=== PATIENT | male | born 1975 | race American Indian/Alaskan Native ===

== ENCOUNTER 2017-05-19 13:42 | Emergency (ER) | payer BC ==
[2017-05-19] MEDS ORDERED: ASPIRIN PO ONE (14:09)
[2017-05-19 14:29] LABS: Basophils # (Auto) 0.1 K/mm3 (0.0-0.1); Basophils % (Auto) 0.9 % (0.0-1.8); Eosinophils # (Auto) 0.2 K/mm3 (0.0-0.4); Eosinophils % (Auto) 3.9 % (0.0-4.3); Hematocrit 41.2 % (35.5-45.6); Hemoglobin 13.4 gm/dl (11.8-15.2); Lymphocytes # (Auto) 2.5 K/mm3 (1.2-5.4); Lymphocytes % (Auto) 40.4 % (13.4-35.0); Mean Corpuscular HGB Conc 33 % (32-34); Mean Corpuscular Hemoglobin 28 pg (28-32); Mean Corpuscular Volume 86 fl (84-94); Monocytes # (Auto) 0.5 K/mm3 (0.0-0.8); Monocytes % (Auto) 7.9 % (0.0-7.3); Platelet Count 243 K/mm3 (140-440); Red Cell Distribution Width 14.2 % (13.2-15.2)
[2017-05-19 14:50] LABS: BUN/Creatinine Ratio 8; Blood Urea Nitrogen 11 mg/dL (9-20); Calcium 9.7 mg/dL (8.4-10.2); Hemolysis Index 5
[2017-05-20] MEDS ORDERED: TYLENOL PO ONE (01:22)
[2017-05-20] MEDS ORDERED: MOTRIN PO ONE (01:22)
--- NOTE | 2017-05-20 01:25 | Emergency Department Report ---
ED General Adult HPI - General Chief complaint: Chest Pain Stated complaint: C/P DIFF BREATHING Time Seen by Provider: 05/20/17 01:09 Source: patient, RN notes reviewed Mode of arrival: Ambulatory Limitations: No Limitations - History of Present Illness Initial comments: This is a 42-year-old male who was previously unknown to this provider. Does not have a primary care doctor, patient versus past medical history of hypertension and high cholesterol. Patient presents to the ER with complaints of chest pain and back pain. The chest pain is left-sided, and supramammary. It does not radiate to the back, arms or neck. He reports that around 24 hours ago, he then developed left lower breast pain. It also does not radiate to the back, arms or neck. There is no vomiting or diaphoresis. Patient describes shortness of breath, which he further elaborates as difficulty breathing when he bends over to tie his shoelaces. He indicates no trouble with walking up and down stairs. 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 He denies leg pain, leg swelling, hematemesis, bright red blood per rectum. His pain has no exacerbating or relieving factors. -: Gradual, week(s) Location: chest, back Severity scale (0 -10): 0 Quality: aching Consistency: intermittent Improves with: none Worsens with: none Associated Symptoms: chest pain. denies: confusion, cough, diaphoresis, fever/ chills, headaches, loss of appetite, malaise, nausea/vomiting, syncope, weakness - Related Data Previous Rx's Medication Instructions Recorded Last Taken Type Acetaminophen [Tylenol Arthritis] 650 mg PO Q6HR PRN #30 tablet.er 05/20/17 Unknown Rx Ibuprofen [Motrin] 600 mg PO Q8H PRN #30 tablet 05/20/17 Unknown Rx Allergies Allergy/AdvReac Type Severity Reaction Status Date / Time No Known Allergies Allergy Verified 05/20/17 01:10 ED Review of Systems ROS: Stated complaint: C/P DIFF BREATHING Other details as noted in HPI ED Past Medical Hx - Past Medical History Previous Medical History?: Yes Hx Hypertension: Yes Additional medical history: High Cholesterol - Surgical History Past Surgical History?: Yes Additional Surgical History: R thumb - Social History Smoking Status: Never Smoker Substance Use Type: Alcohol - Medications Home Medications: Home Medications Medication Instructions Recorded Confirmed Last Taken Type Acetaminophen [Tylenol Arthritis] 650 mg PO Q6HR PRN #30 tablet.er 05/20/17 Unknown Rx Ibuprofen [Motrin] 600 mg PO Q8H PRN #30 tablet 05/20/17 Unknown Rx ED Physical Exam - General Limitations: No Limitations General appearance: alert, in no apparent distress - Head Head exam: Present: atraumatic, normocephalic - Eye Eye exam: Present: normal appearance, EOMI. Absent: nystagmus - ENT ENT exam: Present: normal exam, normal orophraynx, mucous membranes moist, normal external ear exam - Neck Neck exam: Present: normal inspection, full ROM - Respiratory Respiratory exam: Present: normal lung sounds bilaterally. Absent: respiratory distress, chest wall tenderness - Cardiovascular Cardiovascular Exam: Present: regular rate, normal rhythm, normal heart sounds. Absent: bradycardia, tachycardia, irregular rhythm, systolic murmur, diastolic murmur, rubs, gallop - GI/Abdominal GI/Abdominal exam: Present: soft, normal bowel sounds. Absent: distended, tenderness, guarding, rebound, rigid, pulsatile mass - Rectal Rectal exam: Present: deferred - Extremities Exam Extremities exam: Present: normal inspection, full ROM, normal capillary refill , other (there is no palpable cord, there is a negative Homans sign.). Absent: tenderness, pedal edema, joint swelling, calf tenderness - Back Exam Back exam: Present: normal inspection, full ROM. Absent: tenderness, CVA tenderness (R), paraspinal tenderness, vertebral tenderness - Neurological Exam Neurological exam: Present: alert, oriented X3, CN II-XII intact, normal gait, other (Extraocular movements intact. Tongue midline. No facial droop. Facial sensation intact to light touch in the V1, V2, V3 distribution bilaterally. 5 and 5 strength in 4 extremities.. Sensation is intact to light touch in 4 extremities.). Absent: motor sensory deficit - Psychiatric Psychiatric exam: Present: normal affect, normal mood - Skin Skin exam: Present: warm, dry, intact, normal color. Absent: rash ED Course Vital Signs 05/19/17 05/19/17 05/20/17 14:01 23:38 00:08 Temperature 97.9 F 98.3 F 97.7 F Pulse Rate 65 59 L 60 Respiratory 18 18 Rate Blood Pressure 151/88 146/97 Blood Pressure 130/88 [Left] O2 Sat by Pulse 99 99 98 Oximetry 05/20/17 01:48 Temperature 98 F Pulse Rate 71 Respiratory 18 Rate Blood Pressure Blood Pressure 138/86 [Left] O2 Sat by Pulse 100 Oximetry ED Medical Decision Making - Lab Data Result diagrams: 05/19/17 14:16 05/19/17 14:16 Vital Signs 05/19/17 05/19/17 05/20/17 14:01 23:38 00:08 Temperature 97.9 F 98.3 F 97.7 F Pulse Rate 65 59 L 60 Respiratory 18 18 Rate Blood Pressure 151/88 146/97 Blood Pressure 130/88 [Left] O2 Sat by Pulse 99 99 98 Oximetry 05/20/17 01:48 Temperature 98 F Pulse Rate 71 Respiratory 18 Rate Blood Pressure Blood Pressure 138/86 [Left] O2 Sat by Pulse 100 Oximetry Lab Results 05/19/17 05/19/17 05/19/17 Range/Units 14:16 14:16 16:29 WBC 6.2 (4.5-11.0) K/mm3 RBC 4.80 (3.65-5.03) M/mm3 Hgb 13.4 (11.8-15.2) gm/dl Hct 41.2 (35.5-45.6) % MCV 86 (84-94) fl MCH 28 (28-32) pg MCHC 33 (32-34) % RDW 14.2 (13.2-15.2) % Plt Count 243 (140-440) K/mm3 Lymph % (Auto) 40.4 H (13.4-35.0) % [place] % (Auto) 7.9 H (0.0-7.3) % Eos % (Auto) 3.9 (0.0-4.3) % Baso % (Auto) 0.9 (0.0-1.8) % Lymph # 2.5 (1.2-5.4) K/mm3 [place] # 0.5 (0.0-0.8) K/mm3 Eos # 0.2 (0.0-0.4) K/mm3 Baso # 0.1 (0.0-0.1) K/mm3 Seg Neutrophils % 46.9 (40.0-70.0) % Seg Neutrophils # 2.9 (1.8-7.7) K/mm3 PT (12.2-14.9) Sec. INR (0.87-1.13) D-Dimer (0-234) ng/mlDDU Sodium 142 (137-145) mmol/L Potassium 4.0 (3.6-5.0) mmol/L Chloride 103.1 (98-107) mmol/L Carbon Dioxide 26 (22-30) mmol/L Anion Gap 17 mmol/L BUN 11 (9-20) mg/dL Creatinine 1.3 (0.8-1.5) mg/dL Estimated GFR > 60 ml/min BUN/Creatinine Ratio 8 % Glucose 100 (75-100) mg/dL Calcium 9.7 (8.4-10.2) mg/dL Troponin T < 0.010 < 0.010 (0.00-0.029) ng/mL 05/19/17 05/20/17 Range/Units 19:37 01:40 WBC (4.5-11.0) K/mm3 RBC (3.65-5.03) M/mm3 Hgb (11.8-15.2) gm/dl Hct (35.5-45.6) % MCV (84-94) fl MCH (28-32) pg MCHC (32-34) % RDW (13.2-15.2) % Plt Count (140-440) K/mm3 Lymph % (Auto) (13.4-35.0) % [place] % (Auto) (0.0-7.3) % Eos % (Auto) (0.0-4.3) % Baso % (Auto) (0.0-1.8) % Lymph # (1.2-5.4) K/mm3 [place] # (0.0-0.8) K/mm3 Eos # (0.0-0.4) K/mm3 Baso # (0.0-0.1) K/mm3 Seg Neutrophils % (40.0-70.0) % Seg Neutrophils # (1.8-7.7) K/mm3 PT 12.0 L (12.2-14.9) Sec. INR 0.85 L (0.87-1.13) D-Dimer 154.25 (0-234) ng/mlDDU Sodium (137-145) mmol/L Potassium (3.6-5.0) mmol/L Chloride (98-107) mmol/L Carbon Dioxide (22-30) mmol/L Anion Gap mmol/L BUN (9-20) mg/dL Creatinine (0.8-1.5) mg/dL Estimated GFR ml/min BUN/Creatinine Ratio % Glucose (75-100) mg/dL Calcium (8.4-10.2) mg/dL Troponin T < 0.010 (0.00-0.029) ng/mL - EKG Data -: EKG Interpreted by Me - EKG Data 05/20/17 02:30 EKG #1 demonstrates sinus bradycardia, 55 bpm, normal axis, normal intervals, not morphologically consistent with ST elevation myocardial infarction, a repeat EKG is unchanged, borderline high left ventricular voltage is noted. - Radiology Data Radiology results: report reviewed, image reviewed X-ray the chest, interpreted by myself and radiology: No acute disease - Medical Decision Making Differential diagnosis, including but not limited to: Acute coronary syndrome, pericarditis, myocarditis, pulmonary embolus, pneumonia, GERD, gastritis Assessment and plan: 42-year-old male with at least 1 month of chest pain. It is exacerbated by 1 day of atypical chest pain. Objectively speaking troponin negative 3, vital signs stable, EKG unremarkable, low risk by heart score, low risk by PEDRO score, low risk by well's criteria, d-dimer negative, perc negative The patient was observed in the ER for a prolonged period of time without clinical decompensation, he is suitable to follow up with outpatient primary care doctor or sewing machine assembler to complete an acute coronary syndrome or stratification. Critical care attestation.: If time is entered above; I have spent that time in minutes in the direct care of this critically ill patient, excluding procedure time. ED Disposition Clinical Impression: Chest pain Disposition: DC-01 TO HOME OR SELFCARE Is pt being admited?: No Does the pt Need Aspirin: No Condition: Stable Instructions: Chest Pain (ED) Additional Instructions: Take the medications as directed. Rest and avoid heavy lifting and avoid strenuous physical activities. Follow up with either a primary care doctor or sewing machine assembler within the next 7-10 days. Return to the ER right away with new pain, worsening pain, migration of pain, fevers, chills, lethargy, irritability , projectile vomiting, change in mental status, confusion, inability to tolerate liquid feeds. Referrals: PRIMARY CARE, [Primary Care Provider] - 3-5 Days [facility] [Provider Group] - 3-5 Days [facility] [Provider Group] - 3-5 Days [facility] [Provider Group] - 3-5 Days
--- NOTE | 2017-05-20 01:45 | XRay Report ---
FINAL REPORT EXAM: XR CHEST ROUTINE 2V HISTORY: cp TECHNIQUE: PA and lateral views of the chest were submitted. FINDINGS: Heart size and mediastinum appear normal. The lungs are clear. Pleural fluid is not seen. The bones and soft tissues appear well maintained. IMPRESSION: Normal chest
[2017-05-20 01:49] VITALS: BP 138/86
[2017-05-20 02:17] LABS: INR 0.85 (0.87-1.13)
== END 2017-05-20 02:45 | disposition home or self-care (01) ==
LOC: EDSEX → ED 13:42
DX: R07.89 Other chest pain (principal); I10 Essential (primary) hypertension; E78.00 Pure hypercholesterolemia, unspecified
CPT/HCPCS: 36415; 71046; 80048; 84484; 85025; 85379; 85610; 93005; 93010; 99284